=== PATIENT | male | born 1945 | race Caucasian/White ===

== ENCOUNTER 2020-04-21 10:59 | Emergency (ER) | payer MEDICARE, OTHER ==
[~2020-04-21] VITALS: Ht 182 cm; Wt 86.0 kg
[~2020-04-21 10:59] MED LIST: ASP81CT; E400C; GLUCOSAMINE; OMEPRAZOLE 40 MG; VITAMIN B12
--- NOTE | 2020-04-21 11:53 | ED Upper Extremity ---
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 PT REPORTS WAS CUTTING WOOD W/ HIS TABLE SAW ET WAS CAUGHT BY THE SAW. DENIES LOC, ACTIVE BLEEDING NOTED. NO OTHER C/O OR CONCERNS VOICED. Nursing Sepsis Screen: No Definite Risk History of Present Illness Date Seen by Provider: Apr 21, 2020 Time Seen by Provider: 11:51 Initial Comments This is a well appearing 74 yo male who presented to ED after cutting the distal tip of his left third finger with a table saw prior to arrival. Bleeding controlled. Denies pain at this time. No other complaints. Onset: just prior to arrival Pain/Injury Location: left 3rd finger Method of Injury: incised Allergies and Home Medications Allergies Coded Allergies: No Known Drug Allergies (Verified , 11/12/07) Patient Home Medication List Home Medication List Reviewed: Yes Review of Systems Constitutional: no symptoms reported EENTM: no symptoms reported Respiratory: no symptoms reported Cardiovascular: no symptoms reported Gastrointestinal: no symptoms reported Genitourinary: no symptoms reported Musculoskeletal: no symptoms reported Skin: see HPI Psychiatric/Neurological: No Symptoms Reported All Other Systems Reviewed Negative Unless Noted: Yes Past Mhbeaur-Mdvpqa-Vrntwg Hx Patient Social History Alcohol Use: Occasionally Uses Recreational Drug Use: No Smoking Status: Never a Smoker Recent Foreign Travel: No Contact w/Someone Who Travel: No Recent Infectious Disease Expo: No Recent Hopitalizations: Yes Physical Abuse: No Sexual Abuse: No Mistreated: No Fear: No Past Medical History Surgeries: Yes (MIRINGOTMY 40 YRS AGO) Respiratory: No Cardiac: Yes (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 oz. kg; 25.00 BMI Method: General Appearance: WD/WN, no apparent distress HEENT: PERRL/EOMI, pharynx normal Neck: non-tender, full range of motion Cardiovascular: normal peripheral pulses, regular rate, rhythm Respiratory: lungs clear, normal breath sounds, no respiratory distress Gastrointestinal: normal bowel sounds, non tender, soft Shoulder: normal inspection, non-tender, no evidence of injury, normal ROM Elbow/Forearm: normal inspection, non-tender, no evidence of injury, normal ROM Wrist: Yes normal inspection, Yes non-tender, Yes no evidence of injury, Yes normal ROM Hand: Left, laceration (laceration to left third distal phalanx) Neurologic/Tendon: normal sensation, normal motor functions Neurologic/Psychiatric: no motor/sensory deficits, alert, normal mood/affect, oriented x 3 Skin: normal color, warm/dry Progress/Results/Core Measures Results/Orders My Orders Orders - ÓSCAR STOVALL DIRECTOR IN[employer]MENT BANKING Finger(S) (04/21/20 11:43) Lidocaine Pf 1% 5 Ml Injection (Xylocain (04/21/20 12:00) Dipht,Pertuss(Acell),Tet Adult (Boostrix (04/21/20 12:15) Lidocaine 1% Inj 20 Ml (Xylocaine 1% Inj (04/21/20 12:17) Vital Signs/I&O Blood Pressure Mean: 107 Progress Progress Note : Progress Note Radiographs of the left third distal phalanx obtained and no injury noted to the bony prominences. Complete removal of the medial lateral aspect of his left third distal phalanx, no flap retained to approximate. The site was cleansed with soap and water and he tolerated this well. Xeroform and Rizwana wrap applied. Tolerated well. Reviewed the POC with him and he is agreeable with plan. Departure Impression Primary Impression: Laceration Disposition: 01 HOME, SELF-CARE Condition: Improved Departure-Patient Inst. Decision time for Depature: 12:48 Referrals: OLI REGAN DO (PCP/Family) Primary Care Physician Patient Instructions: SKIN AVULSION Add. Discharge Instructions: Plan: 1. Discharge home. 2. Keep hand elevated above your heart for the next 48-72 hours to reduce swelling. 3. Change dressing daily as directed in ER, wash with mild soap and water, pat dry, and cover with Xeroform, and coban. 4. Monitor for signs on infection such as redness, draining, persistent pain, fever. Follow up with Dr. Regan if symptoms develop. 5. Return to ER for any new or concerning symptoms. 6. Tetanus updated today. All discharge instructions reviewed with patient and/or family. Voiced und erstanding. ÓSCAR STOVALL DIRECTOR [employer]ANKING Apr 21, 2020 11:53
[2020-04-21] MEDS ORDERED: LIDOCAINE PF 1% 5 ML (XYLOCAINE) AMP INJ ONE (12:00)
--- NOTE | 2020-04-21 12:06 | Diagnostic Imaging Report ---
INDICATION: Cut distal left 3rd finger on a table saw. FINDINGS: 3 views of the 3rd finger demonstrates soft tissue injury. No foreign body or osseous abnormalities are present. IMPRESSION: There is soft tissue injury with no foreign body or osseous abnormality. Dictated by: Dictated on workstation # [id number]
[2020-04-21] MEDS ORDERED: TETANUS,DIPTH,PERTUSS P/F (BOOSTRIX) 0.5 ML VIAL IM ONE (12:15)
[2020-04-21] MEDS ORDERED: LIDOCAINE 1% INJ 20 ML 20 ML VIAL ONE (12:17)
[2020-04-21 12:55] VITALS: BP 0/0
== END 2020-04-21 12:55 | disposition home or self-care (01) ==
LOC: EDUNIT# 10:59 → ER 11:01
DX: S61.213A Laceration without foreign body of left middle finger without damage to nail, initial encounter (principal); Z23 Encounter for immunization; W31.2XXA Contact with powered woodworking and forming machines, initial encounter
CPT/HCPCS: 73140; 90715

== ENCOUNTER 2020-05-11 19:50 | Emergency (ER) | payer MEDICARE, OTHER ==
[~2020-05-11] VITALS: Ht 182 cm; Wt 90.0 kg
--- NOTE | 2020-05-11 20:07 | NUR ---
DR MAGAÑA AT BEDSIDE
[2020-05-11] MEDS ORDERED: NS IV 500 ML 500 ML IV ONE ×2 (20:08→21:05)
[2020-05-11 20:18] LABS: BASOPHILS % (AUTO) 1 % (0-10); EOSINOPHILS # (AUTO) 0.1 10^3/uL (0.0-0.3); EOSINOPHILS % (AUTO) 2 % (0-10); HEMATOCRIT 37 % (40-54); HEMOGLOBIN 12.6 g/dL (13.3-17.7); LYMPHOCYTES # (AUTO) 1.5 10^3/uL (1.0-4.0); LYMPHOCYTES % (AUTO) 30 % (12-44); MEAN CORPUSCULAR HEMOGLOBIN 32 pg (25-34); MEAN CORPUSCULAR HGB CONC 34 g/dL (32-36); MEAN CORPUSCULAR VOLUME 93 fL (80-99); MEAN PLATELET VOLUME 9.8 fL (9.0-12.2); MONOCYTES # (AUTO) 0.5 10^3/uL (0.0-1.0); MONOCYTES % (AUTO) 11 % (0-12); NEUTROPHILS # (AUTO) 2.9 10^3/uL (1.8-7.8); NEUTROPHILS % (AUTO) 57 % (42-75); PLATELET COUNT 195 10^3/uL (130-400)
[2020-05-11 20:25] LABS: FIBRIN DEGRADATION PRODUCTS 0.46 UG/ML (0.00-0.49); INR 0.9 (0.8-1.4); PROTHROMBIN TIME PATIENT 12.9 SEC (12.2-14.7)
[2020-05-11 20:30] LABS: ALBUMIN 3.9 GM/DL (3.2-4.5)
--- NOTE | 2020-05-11 20:31 | ED Neurological Problem ---
General Chief Complaint: Neuro-Stroke Like Symptoms Stated Complaint: R SIDE WEAKNESS Source: patient Exam Limitations: no limitations (JEANNINE WINKLER,MED STUDENT) History of Present Illness Date Seen by Provider: May 11, 2020 Time Seen by Provider: 20:03 Initial Comments Patient is a 75yo male with history of left sided lacunar stroke comes to the ED via EMS for right sided weakness in his right arm and leg and right sided facial drop that has resolved. Patient reports that he was sitting at home and was talking on the phone with a friend and when he went to write something down he noticed that he hand some some weakness on his right side. He says that the symptoms started around 0 and resolved by 1919. He says that he has had a head ache for the last couple of days over this eyes and that it migrated to the back of his head today. he also mentioned that he has had some recent tinnitus in both ears that has had pulsating characteristics. His last stroke was in 2007 and it was found that he had a patent foramen ovale that was repaired in [place]. He says that his episodes tonight are exactly like his symptom when he had his stroke. He denies having any episodes like this since this stroke in 2007. Timing/Duration: 1/2 hour Associated Symptoms: ringing in ears, slurred speech, weakness (JEANNINE WINKLER,MED STUDENT) Severity: moderate Associated Symptoms: No confusion, No fever/chills, No nausea/vomiting (RADHA MAGAÑA MD) Allergies and Home Medications Allergies Coded Allergies: No Known Drug Allergies (Verified , 11/12/07) Patient Home Medication List Home Medication List Reviewed: Yes (RADHA MAGAÑA MD) Review of Systems Review of Systems Constitutional: No chills, No diaphoresis, No dizziness, No fever Eyes: See HPI Ears, Nose, Mouth, Throat: see HPI; denies ear pain, denies ear discharge, denies nose pain, denies nose discharge Respiratory: No cough, No dyspnea on exertion; other Cardiovascular: Hx of Intervention (patent foramen ovale repair in 2007 ); No palpitations, No syncope; other (tinnitus in both ears ) Gastrointestinal: No abdominal pain, No constipation, No diarrhea Musculoskeletal: see HPI, muscle weakness Psychiatric/Neurological: Denies Anxiety, Denies Depressed, Denies Cognitive Dysfunction; Headache, Unable to Move Lower Ext (right side initial but symptoms resolved before arrival to ED ), Unable to Move Upper Ext (right side initial but symptoms resolved before arrival to ED ), Weakness (right side initially but symptoms have resolved. ) (JEANNINE WINKLER MED STUDENT) Respiratory: No short of breath, No wheezing Gastrointestinal: No dysphagia, No nausea, No vomiting (RADHA MAGAÑA MD) All Other Systems Reviewed Negative Unless Noted: Yes (RADHA MAGAÑA MD) Past Dnofjcm-Lcdmzu-Feuciz Hx Past Med/Social Hx: Reviewed Nursing Past Med/Soc Hx (RADHA MAGAÑA MD) Patient Social History Alcohol Use: Denies Use Recreational Drug Use: No Smoking Status: Never a Smoker Recent Hopitalizations: Yes Physical Abuse: No Sexual Abuse: No Mistreated: No Fear: No (JEANNINE WINKLER MED STUDENT) Past Medical History Surgeries: Yes (MIRINGOTMY 40 YRS AGO) Cardiac (repair of patent foramen ovale in 2007 ) Respiratory: No Cardiac: Yes (HAD A patient foramen ovale REPAIRED JANUARY 2008) Hypertension, 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 oz. kg; 25.00 BMI Method: General Appearance: WD/WN, no apparent distress HEENT: PERRL/EOMI, normal ENT inspection, TMs normal, pharynx normal; No scleral icterus (R), No scleral icterus (L), No pale conjunctivae (R), No pale conjunctivae (L) Neck: non-tender, full range of motion, supple, normal inspection; No carotid bruit, No limited range of motion Respiratory: chest non-tender, lungs clear, normal breath sounds, no respiratory distress, no accessory muscle use Cardiovascular: normal peripheral pulses, regular rate, rhythm, no edema, no gallop, no JVD, bradycardia Peripheral Pulses: 2+ Carotid (R), 2+ Carotid (L), 2+ Dorsalis Pedis (R), 2+ Left Dors-Pedis (L), 2+ Radial Pulses (R), 2+ Radial Pulses (L) Gastrointestinal: non tender, soft; No distended, No guarding, No rebound Extremities: normal range of motion, non-tender, normal inspection, no calf tenderness, normal capillary refill Neurologic/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: 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, no motor/sensory deficits, alert, normal mood/affect, oriented x 3; No abnormal cerebellar tests, No abnormal 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, No facial droop, No motor weakness, No sensory deficit Crainal Nerves: normal hearing, normal speech, PERRL Coordination/Gait: normal finger to nose Motor/Sensory: no motor deficit, no sensory deficit, no pronator drift, negative Babinski's sign Skin: normal color, warm/dry (JEANNINE WINKLER,MED STUDENT) Cardiovascular: no murmur, bradycardia Gastrointestinal: non tender, soft Neurologic/Psychiatric: alert, oriented x 3 Crainal Nerves: normal hearing, normal speech, PERRL Coordination/Gait: normal finger to nose Motor/Sensory: no motor deficit, no sensory deficit, no pronator drift Skin: normal color, warm/dry (RADHA MAAGÑA MD) Stroke NIH Stroke Scale Assessment Level of Consciousness: 0=Alert (0), Level of Consciousness-Questions: 0=Answers both month/age (0), LOC Commands: 0=Performs both tasks (0), Visual Brower: 0=No visual loss (0), Facial Movement (Facial Paresis): 0=Normal symmetrical mnt (0), Motor Function-Arms Right: 0=No drift (0), Motor Function-Arms Left: 0=No drift (0), Motor Function-Legs Right: 0=No drift (0), Motor Function-Legs Left: 0=No drift (0), Limb Ataxia: 0=Absent (0), Sensory: 0=Normal:no loss (0), Best Language: 0=No aphasia (0), Dysarthria: 0=Normal (0), Extinction & Inattention: 0=No abnormality (0), Total: 0 Progress/Results/Core Measures Results/Orders Lab Results Laboratory Tests Test 05/11/20 19:56 05/11/20 21:46 Range/Units White Blood Count 5.0 4.3-11.0 10^3/uL Red Blood Count 3.92 L 4.30-5.52 10^6/uL Hemoglobin 12.6 L 13.3-17.7 g/dL Hematocrit 37 L 40-54 % Mean Corpuscular Volume 93 80-99 fL Mean Corpuscular Hemoglobin 32 25-34 pg Mean Corpuscular Hemoglobin Concent 34 32-36 g/dL Red Cell Distribution Width 12.1 10.0-14.5 % Platelet Count 195 130-400 10^3/uL Mean Platelet Volume 9.8 9.0-12.2 fL Immature Granulocyte % (Auto) 0 % Neutrophils (%) (Auto) 57 42-75 % Lymphocytes (%) (Auto) 30 12-44 % Monocytes (%) (Auto) 11 0-12 % Eosinophils (%) (Auto) 2 0-10 % Basophils (%) (Auto) 1 0-10 % Neutrophils # (Auto) 2.9 1.8-7.8 10^3/uL Lymphocytes # (Auto) 1.5 1.0-4.0 10^3/uL Monocytes # (Auto) 0.5 0.0-1.0 10^3/uL Eosinophils # (Auto) 0.1 0.0-0.3 10^3/uL Basophils # (Auto) 0.0 0.0-0.1 10^3/uL Immature Granulocyte # (Auto) 0.0 0.0-0.1 10^3/uL Prothrombin Time 12.9 12.2-14.7 SEC INR Comment 0.9 0.8-1.4 Activated Partial Thromboplast Time 27 24-35 SEC D-Dimer 0.46 0.00-0.49 UG/ML Sodium Level 140 135-145 MMOL/L Potassium Level 3.8 3.6-5.0 MMOL/L Chloride Level 106 98-107 MMOL/L Carbon Dioxide Level 23 21-32 MMOL/L Anion Gap 11 5-14 MMOL/L Blood Urea Nitrogen 14 7-18 MG/DL Creatinine 0.94 0.60-1.30 MG/DL Estimat Glomerular Filtration Rate > 60 BUN/Creatinine Ratio 15 Glucose Level 134 H 70-105 MG/DL Calcium Level 8.6 8.5-10.1 MG/DL Corrected Calcium 8.7 8.5-10.1 MG/DL Total Bilirubin 0.5 0.1-1.0 MG/DL Aspartate Amino Transf (AST/SGOT) 24 5-34 U/L Alanine Aminotransferase (ALT/SGPT) 21 0-55 U/L Alkaline Phosphatase 111 40-136 U/L Troponin I < 0.028 <0.028 NG/ML Total Protein 6.3 L 6.4-8.2 GM/DL Albumin 3.9 3.2-4.5 GM/DL Urine Color YELLOW Urine Clarity SL CLOUDY Urine pH 6.0 5-9 Urine Specific [place] 1.025 H 1.016-1.022 Urine Protein NEGATIVE NEGATIVE Urine Glucose (UA) NEGATIVE NEGATIVE Urine Ketones NEGATIVE NEGATIVE Urine Nitrite NEGATIVE NEGATIVE Urine Bilirubin NEGATIVE NEGATIVE Urine Urobilinogen 0.2 < = 1.0 MG/DL Urine Leukocyte Esterase NEGATIVE NEGATIVE Urine RBC (Auto) NEGATIVE NEGATIVE Urine RBC NONE /HPF Urine WBC 0-2 /HPF Urine Squamous Epithelial Cells RARE /HPF Urine Crystals NONE /LPF Urine Bacteria NEGATIVE /HPF Urine Casts NONE /LPF Urine Mucus NEGATIVE /LPF Urine Culture Indicated NO (RADHA MAGAÑA MD) My Orders Orders - RADHA MAGAÑA MD Ed Iv/Invasive Line Start (05/11/20 20:08) Ns Iv 500 Ml (Sodium Chloride 0.9%) (05/11/20 20:08) Cbc With Automated Diff (05/11/20:08) Protime With Inr (05/11/20:08) Partial Thromboplastin Time (05/11/20 20:08) Comprehensive Metabolic Panel (05/11/20 20:08) Fibrin Degradation Products (05/11/20:08) Troponin I (05/11/20:08) Ua Culture If Indicated (05/11/20 20:08) Chest 1 View, Ap/Pa Only (05/11/20 20:08) Ekg Tracing (05/11/20 20:08) Nothing By Mouth (05/12/20 Breakfast) Accucheck Stat ONCE (05/11/20 20:08) Ed Iv/Invasive Line Start (05/11/20 20:08) Vital Signs Stroke Patient Q15M (05/11/20 20:08) Ct Head Wo-R/O Stroke (05/11/20 20:08) O2 (05/11/20 20:08) Intake & Output 06,14,22 (05/11/20 20:08) Monitor-Rhythm Ecg Trace Only (05/11/20 20:08) Dysphagia Screening Tool (05/11/20 20:08) Lipid Panel (05/12/20 06:00) Ct Angio Head/Neck (05/11/20 21:05) Ns Iv 500 Ml (Sodium Chloride 0.9%) (05/11/20 21:05) Iohexol Injection (Omnipaque 350 Mg/Ml 1 (05/11/20 21:15) Received Contrast (Hold Metformin- Contr (05/11/20 21:15) Ns (Ivpb) (Sodium Chloride 0.9% Ivpb Bag (05/11/20 21:15) Procalcitonin (Pct) (05/11/20 22:06) (RADHA MAGAÑA MD) Medications Given in ED Current Medications Medications Dose Ordered Sig/Maria Elena Route Start Time Stop Time Status Last Admin Dose Admin Iohexol 100 ml ONCE ONCE IV 05/11/20 21:15 05/11/20 21:34 DC 05/11/20 22:22 75 ML Sodium Chloride 100 ml ONCE ONCE IV 05/11/20 21:15 05/11/20 21:34 DC 05/11/20 22:22 80 ML Sodium Chloride 500 ml @ 0 mls/hr Q0M ONCE IV 05/11/20 20:08 05/11/20 20:13 DC 05/11/20 20:23 0 MLS/HR Sodium Chloride 500 ml @ 0 mls/hr Q0M ONCE IV 05/11/20 21:05 05/11/20 21:06 DC 05/11/20 22:09 500 MLS/HR (RADHA MAGAÑA MD) Progress Progress Note : Progress Note I have seen and examined this 75yo male who presented to ED with right sided weakness that resolved prior to arrive to the ED. Patient has hx of left lacunar stroke in 2007 and symptoms today are reported to mirror those he had with his stroke. Initiated stroke protocol set. (JEANNINE WINKLER,MED STUDENT) Progress Note : Progress Note I have seen and evaluated the patient and agree with above except as indicated. I have directed the plan of care. Patient is here with acute onset of right- sided weakness that occurred at about 7 PM that resolved by 7:20 PM. Does have history of stroke with right-sided weakness. He describes it as a lacunar infarct and that was in 2007. He follows with Dr. Figueroa. We have initiated the stroke protocol. Initial stroke scale is 0. Normal saline 500 mL bolus ordered. Monitor patient. 2345: We have monitor the patient throughout the evening. Ultimately we added and patient did receive CT angiogram of the head and neck as well as another bolus of 500 mL normal saline. Overall he is doing much better. He is walking without difficulty or balance problems. His is here with him. He has great follow-up with his primary care physician and he would like to go home. I think at this point given his resolution of symptoms and no return and that he lives with his with ability for good follow-up that discharge home is a reasonable option. We did discuss risk and benefits and patient would prefer to go home. He states he will call Dr. Figueroa on Wednesday morning. I will send a copy of the chart to Dr. Figueroa with all of the results. Discharged home with return precautions. Patient verbalize understanding instructions and agreement with plan. We have noted that his heart rate has been per persistently in the 40s. Patient is unsure what his normal is. He will discuss this with his doctor as well. (RADHA MAGAÑA MD) Initial ECG Impression Date: May 11, 2020 Initial ECG Rate: 48 Initial ECG Rhythm: S.Aj Initial ECG Intervals: Normal Initial ECG Impression: Sinus Bradycardia Initial ECG Comparisson: Unchanged Comment Normal axis sinus bradycardia with notable T-waves in V2-V4. EKG is unchanged compaired to ekg from 2008. (JEANNINE WINKLER,MED STUDENT) Initial ECG Impression Time: 20:22 Comment Reviewed and agree with above (RADHA MAGAÑA MD) Diagnostic Imaging Diagonstic Imaging: CT Plain Films/CT/US/NM/MRI: head Comments [facility]. [place], [place] NAME: GILA BRADLEY III [facility] REC#: [id number] PT STATUS: REG ER : 1945 PHYSICIAN: RADHA MAGAÑA MD ADMIT DATE: 05/11/20/ER Draft Date of Exam:05/11/20 CT HEAD WO-R/O STROKE PROCEDURE: CT head w/o r/o stroke. TECHNIQUE: Multiple contiguous axial images were obtained through the brain without the use of intravenous contrast. Auto Exposure Controls were utilized during the CT exam to meet ALARA standards for radiation dose reduction. INDICATION: STROKE. Neurodeficit. COMPARISON: CT head without contrast 11/17/2007. FINDINGS: Tiny chronic infarct in the left basal ganglia. No CT evidence of an acute territorial infarction. Mild generalized cerebral and cerebellar parenchymal volume loss is age appropriate. No intracranial hemorrhage, mass effect, hydrocephalus or extra-axial fluid collection. Minimal mucosal thickening in the right maxillary sinus. The mastoids are clear. Osseous structures are intact. IMPRESSION: 1. No acute intracranial CT finding. 2. Tiny chronic lacunar infarct in the left basal ganglia. Dictated on workstation # [id number] Dict: 05/11/202041 Trans: 05/11/[address]46 [facility] [id number] Interpreted by: HONG GIBSON MD Electronically signed by: Diagonstic Imaging: Xray Plain Films/CT/US/NM/MRI: chest Comments [facility] [place] [place] NAME: GILA BRADLEY [facility] REC#: [id number] PT STATUS: REG ER : 1945 PHYSICIAN: RADHA MAGAÑA MD ADMIT DATE: 05/11/20/ER Draft Date of Exam:05/11/20 CHEST 1 VIEW, AP/PA ONLY EXAM: Chest 1 view, AP/PA only. INDICATION: STROKE. COMPARISON: Chest radiograph 11/12/2007. FINDINGS: Borderline heart size. Normal central pulmonary vascularity. No focal pulmonary opacity. No pleural effusion or pneumothorax. No acute osseous finding. IMPRESSION: Borderline heart size. Chest is otherwise negative. Dictated on workstation # [id number] Dict: 05/11/202043 Trans: 05/11/202045 [facility] [id number] Interpreted by: HONG GIBSON MD Electronically signed by: Diagonstic Imaging: CT Plain Films/CT/US/NM/MRI: other Comments [facility] [place] [place] NAME: GILA BRADLEY [facility] REC#: [id number] PT STATUS: REG ER : 1945 PHYSICIAN: RADHA MAGAÑA MD ADMIT DATE: 05/11/20/ER Draft Date of Exam:05/11/20 CT ANGIO HEAD/NECK PROCEDURE: CT angiography of the head and CT angiography of the neck with and without contrast. TECHNIQUE: Contiguous noncontrast images were obtained from the skull base through the vertex. After intravenous contrast administration, helical CT angiography of the neck was performed. Source data was reformatted into 3D MIP projections. Delayed post contrast acquisition was also obtained. Auto Exposure Controls were utilized during the CT exam to meet ALARA standards for radiation dose reduction. INDICATION: STROKE. COMPARISON: CT head without contrast performed earlier today. FINDINGS: CTA demonstrates a conventional aortic arch. Mild scattered atherosclerotic calcifications. No large vessel occlusion. The basilar, bilateral vertebral, common carotid, internal carotid, anterior cerebral, middle cerebral and posterior cerebral arteries are widely patent and without evidence of aneurysm or dissection. The superior, anterior inferior and posterior inferior cerebellar arteries appear patent. There remains no evidence of large intracranial hemorrhage or territorial infarction on this postcontrast exam. No abnormal intracranial enhancement. No hydrocephalus. Osseous structures are intact. Mild mucosal thickening in the right maxillary sinus. Mild spondylotic changes in the cervical spine at C5-C6. The visualized paravertebral soft tissues are unremarkable. The lung apices are clear. IMPRESSION: No high-grade narrowing, aneurysm or dissection involving the major arteries in the head and neck. Specifically, no large vessel occlusion. Dictated on workstation # [id number] Dict: 05/11/202207 Trans: 05/11/2022[address] [facility] [id number] Interpreted by: HONG GIBSON MD Electronically signed by: (RADHA MAGAÑA MD) Departure Impression Primary Impression: Transient cerebral ischemia Qualified Codes: G45.9 - Transient cerebral ischemic attack, unspecified Additional Impression: Bradycardia Disposition: 01 HOME, SELF-CARE Condition: Improved Departure-Patient Inst. Decision time for Depature: 23:49 (RADHA MAGAÑA MD) Referrals: OLI FIGUEROA DO (PCP/Family) Primary Care Physician Patient Instructions: Transient Ischemic Attack (DC), Bradycardia (DC) Add. Discharge Instructions: All discharge instructions reviewed with patient and/or family. Voiced understanding. Call Dr. Figueroa for appointment on Wednesday. Follow up with him as soon as possible. Return for weakness, vision or balance problems, difficulty with speech or walking, chest pain, breathing problems or other concerns as needed. Continue home medications as previously prescribed. Discuss with your doctor regarding these symptoms today as well as your heart rate as you may need adjustment of your medications. Copy Copies To 1: OLI FIGUEROA MICAH,MED STUDENT May 11, 2020 20:31 RADHA MAGAÑA MD May 11, 2020 21:05
[2020-05-11 20:32] LABS: CALCIUM 8.6 MG/DL (8.5-10.1)
[2020-05-11 20:33] LABS: GLUCOSE 134 MG/DL (70-105); TOTAL PROTEIN 6.3 GM/DL (6.4-8.2)
[2020-05-11 20:34] LABS: CARBON DIOXIDE 23 MMOL/L (21-32)
[2020-05-11 20:35] LABS: BILIRUBIN,TOTAL 0.5 MG/DL (0.1-1.0)
[2020-05-11 20:37] LABS: CREATININE SERUM 0.94 MG/DL (0.60-1.30); GFR ESTIMATED > 60
[2020-05-11 20:38] LABS: BUN/CREATININE RATIO 15
[2020-05-11 20:39] LABS: ALANINE AMINOTRANSFERASE 21 U/L (0-55)
--- NOTE | 2020-05-11 20:47 | Diagnostic Imaging Report ---
EXAM: Chest 1 view, AP/PA only. INDICATION: STROKE. COMPARISON: Chest radiograph 11/12/2007. FINDINGS: Borderline heart size. Normal central pulmonary vascularity. No focal pulmonary opacity. No pleural effusion or pneumothorax. No acute osseous finding. IMPRESSION: Borderline heart size. Chest is otherwise negative. Dictated by: Dictated on workstation # [id number]
--- NOTE | 2020-05-11 20:48 | Diagnostic Imaging Report ---
PROCEDURE: CT head w/o r/o stroke. TECHNIQUE: Multiple contiguous axial images were obtained through the brain without the use of intravenous contrast. Auto Exposure Controls were utilized during the CT exam to meet ALARA standards for radiation dose reduction. INDICATION: STROKE. Neurodeficit. COMPARISON: CT head without contrast 11/17/2007. FINDINGS: Tiny chronic infarct in the left basal ganglia. No CT evidence of an acute territorial infarction. Mild generalized cerebral and cerebellar parenchymal volume loss is age appropriate. No intracranial hemorrhage, mass effect, hydrocephalus or extra-axial fluid collection. Minimal mucosal thickening in the right maxillary sinus. The mastoids are clear. Osseous structures are intact. IMPRESSION: 1. No acute intracranial CT finding. 2. Tiny chronic lacunar infarct in the left basal ganglia. Dictated by: Dictated on workstation # [id number]
[2020-05-11] MEDS ORDERED: HOLD METFORMIN - RECEIVED CONTRAST 20 ML VIAL IV SCH (21:15)
[2020-05-11] MEDS ORDERED: IOHEXOL 350 MG/ML 100 ML (OMNIPAQUE 350) VIAL IV ONE (21:15)
[2020-05-11] MEDS ORDERED: NS 100 ML (IVPB) BAG IV ONE (21:15)
--- NOTE | 2020-05-11 21:17 | NUR ---
DR MAGAÑA IN W/ PT AT THIS TIME DISCUSSING PLAN OF CARE. UNDERSTANDING VOICED.
[2020-05-11 21:29] LABS: ALKALINE PHOSPHATASE 111 U/L (40-136); CHLORIDE 106 MMOL/L (98-107); POTASSIUM 3.8 MMOL/L (3.6-5.0); SODIUM 140 MMOL/L (135-145)
[2020-05-11 22:17] LABS: BILIRUBIN,URINE NEGATIVE (NEGATIVE); CLARITY,URINE SL CLOUDY; COLOR,URINE YELLOW; GLUCOSE, URINE (UA) NEGATIVE (NEGATIVE); KETONES,URINE NEGATIVE (NEGATIVE); LEUKOCYTE ESTERASE ,URINE NEGATIVE (NEGATIVE); NITRITE,URINE NEGATIVE (NEGATIVE); PROTEIN,URINE NEGATIVE (NEGATIVE)
--- NOTE | 2020-05-11 22:17 | Diagnostic Imaging Report ---
PROCEDURE: CT angiography of the head and CT angiography of the neck with and without contrast. TECHNIQUE: Contiguous noncontrast images were obtained from the skull base through the vertex. After intravenous contrast administration, helical CT angiography of the neck was performed. Source data was reformatted into 3D MIP projections. Delayed post contrast acquisition was also obtained. Auto Exposure Controls were utilized during the CT exam to meet ALARA standards for radiation dose reduction. INDICATION: STROKE. COMPARISON: CT head without contrast performed earlier today. FINDINGS: CTA demonstrates a conventional aortic arch. Mild scattered atherosclerotic calcifications. No large vessel occlusion. The basilar, bilateral vertebral, common carotid, internal carotid, anterior cerebral, middle cerebral and posterior cerebral arteries are widely patent and without evidence of aneurysm or dissection. The superior, anterior inferior and posterior inferior cerebellar arteries appear patent. There remains no evidence of large intracranial hemorrhage or territorial infarction on this postcontrast exam. No abnormal intracranial enhancement. No hydrocephalus. Osseous structures are intact. Mild mucosal thickening in the right maxillary sinus. Mild spondylotic changes in the cervical spine at C5-C6. The visualized paravertebral soft tissues are unremarkable. The lung apices are clear. IMPRESSION: No high-grade narrowing, aneurysm or dissection involving the major arteries in the head and neck. Specifically, no large vessel occlusion. Dictated by: Dictated on workstation # [id number]
[2020-05-11 22:28] LABS: BACTERIA,URINE NEGATIVE /HPF; SQUAMOUS EPITHELIAL CELL,UR RARE /HPF; WBC,URINE 0-2 /HPF
--- NOTE | 2020-05-11 23:16 | NUR ---
PT ET UPDATED TO WAIT. UNDERSTANDING VOICED. NO QUESTIONS OR CONCERNS VOICED.
[2020-05-11 23:54] VITALS: BP 150/66
== END 2020-05-11 23:54 | disposition home or self-care (01) ==
LOC: EDUNIT# 19:58 → ER 20:00
DX: G45.9 Transient cerebral ischemic attack, unspecified (principal); R00.1 Bradycardia, unspecified
CPT/HCPCS: 36415; 70450; 70496; 70498; 71045; 80053; 81000; 84145; 84484; 85025; 85379; 85610; 85730; 93005; 93041

== ENCOUNTER → 2023-06-07 | Outpatient (CLI) | payer MEDICARE, OTHER | LOC: WOUNDCARE 14:17 | PROVIDERS: ATTEND Family Medicine | DX: S67.01XA Crushing injury of right thumb, initial encounter (principal); S68.521A Partial traumatic transphalangeal amputation of right thumb, initial encounter; R60.0 Localized edema; Z79.01 Long term (current) use of anticoagulants; I96 Gangrene, not elsewhere classified | CPT/HCPCS: 99212 ==

== ENCOUNTER → 2023-06-14 | Outpatient (CLI) | payer MEDICARE, OTHER | LOC: WOUNDCARE 08:15 | PROVIDERS: ATTEND Family Medicine | DX: S67.01XA Crushing injury of right thumb, initial encounter (principal); S68.521A Partial traumatic transphalangeal amputation of right thumb, initial encounter; I89.0 Lymphedema, not elsewhere classified; Z79.01 Long term (current) use of anticoagulants; I96 Gangrene, not elsewhere classified | CPT/HCPCS: 11042; G0463 ==

== ENCOUNTER → 2023-06-21 | Outpatient (CLI) | payer MEDICARE, OTHER ==
[2023-06-21 09:39] LABS: BASOPHILS # (AUTO) 0.1 10^3/uL (0.0-0.1); BASOPHILS % (AUTO) 1 % (0-10); EOSINOPHILS % (AUTO) 1 % (0-10); HEMATOCRIT 40 % (40-54); HEMOGLOBIN 13.5 g/dL (13.3-17.7); LYMPHOCYTES % (AUTO) 19 % (12-44); MEAN CORPUSCULAR HEMOGLOBIN 32 pg (25-34); MEAN CORPUSCULAR HGB CONC 34 g/dL (32-36); MEAN CORPUSCULAR VOLUME 94 fL (80-99); MONOCYTES # (AUTO) 0.5 10^3/uL (0.0-1.0); MONOCYTES % (AUTO) 9 % (0-12); NEUTROPHILS % (AUTO) 71 % (42-75); PLATELET COUNT 243 10^3/uL (130-400); WHITE BLOOD COUNT 5.6 10^3/uL (4.3-11.0)
[2023-06-21 09:56] LABS: ALBUMIN 4.3 GM/DL (3.2-4.5); BILIRUBIN,TOTAL 0.5 MG/DL (0.1-1.0); CALCIUM 9.2 MG/DL (8.5-10.1); CREATININE SERUM 0.87 MG/DL (0.60-1.30); POTASSIUM 4.4 MMOL/L (3.6-5.0)
[2023-06-21 10:00] LABS: ERYTHROCYTE SEDIMENTATION RATE 6 MM/HR (0-30)
== END ==
LOC: WOUNDCARE 08:55
PROVIDERS: ATTEND Family Medicine
DX: S67.01XA Crushing injury of right thumb, initial encounter (principal); S68.521A Partial traumatic transphalangeal amputation of right thumb, initial encounter; I96 Gangrene, not elsewhere classified; R60.0 Localized edema; Z79.01 Long term (current) use of anticoagulants; X58.XXXA Exposure to other specified factors, initial encounter
CPT/HCPCS: 11042; 80053; 85025; 85652; 86141; 87070; 87205; G0463; 36415

== ENCOUNTER → 2023-06-28 | Outpatient (CLI) | payer MEDICARE, OTHER | LOC: WOUNDCARE 08:53 | PROVIDERS: ATTEND Family Medicine | DX: S67.01XA Crushing injury of right thumb, initial encounter (principal); S68.521A Partial traumatic transphalangeal amputation of right thumb, initial encounter; I96 Gangrene, not elsewhere classified; B95.2 Enterococcus as the cause of diseases classified elsewhere; Z79.01 Long term (current) use of anticoagulants; X58.XXXA Exposure to other specified factors, initial encounter | CPT/HCPCS: 11042; G0463 ==